=== PATIENT | male | born 1990 | race Caucasian/White ===

== ENCOUNTER 2016-03-26 08:36 | Emergency (ER) | payer SELFPAY ==
[2016-03-26 08:41] VITALS: BP 122/93; PULSE 75; RESP 20; TEMP 97.5
--- NOTE | 2016-03-26 08:59 | ED ---
Skin/Abscess/FB HPI - General Chief complaint: Skin/Abscess/Foreign Body Stated complaint: rash Time Seen by Provider: 03/26/16 08:49 Source: patient, RN notes reviewed Mode of arrival: ambulatory Limitations: no limitations - History of Present Illness Initial comments: 25 yo male presents to the ER with a chief complaint of rash. Patient states he has itchy rash the left side of his leg and back. Patient states that it's been itching for the past few days. Patient states it started out rather stoic removed. His chest CT will be. Patient states he just cannot help but it just so he was concerned. Patient states is no fever chills with this. Patient denies any itching in the web spaces. Patient states his son has a few bumps as well but the does not. Patient states that he was concerned due to the rash states that he should be evaluated. Patient denies any recent fever, chills , shortness of breath, chest pain, back pain, abdominal pain, nausea vomiting, numbness or tingling, dysuria or hematuria, constipation or diarrhea, headaches or visual changes, or any other current symptoms. - Related Data Previous Rx's Medication Instructions Recorded Famotidine [Pepcid] 20 mg PO DAILY #10 tablet 11/20/15 Ondansetron HCl [Zofran] 4 mg PO Q6HR PRN #10 tab 11/20/15 Hydrocortisone Cream 1 applic TOPICAL BID #1 tube 03/26/16 [Hydrocortisone 1% Cream] diphenhydrAMINE [Benadryl] 50 mg PO HS PRN #5 capsule 03/26/16 Allergies Allergy/AdvReac Type Severity Reaction Status Date / Time No Known Allergies Allergy Verified 03/26/16 08:40 Review of Systems ROS Statement: Those systems with pertinent positive or pertinent negative responses have been documented in the HPI. ROS Other: All systems not noted in ROS Statement are negative. Past Medical History Past Medical History: No Reported History History of Any Multi-Drug Resistant Organisms: None Reported Past Surgical History: No Surgical Hx Reported Past Psychological History: No Psychological Hx Reported Smoking Status: Current every day smoker Past Alcohol Use History: Daily Past Drug Use History: Marijuana General Exam Limitations: no limitations General appearance: alert, in no apparent distress Respiratory exam: Present: normal lung sounds bilaterally. Absent: respiratory distress, wheezes, rales, rhonchi, stridor Cardiovascular Exam: Present: regular rate, normal rhythm, normal heart sounds. Absent: systolic murmur, diastolic murmur, rubs, gallop, clicks Back exam: Present: normal inspection Neurological exam: Present: alert, oriented X3, CN II-XII intact. Absent: motor sensory deficit Psychiatric exam: Present: normal affect, normal mood Skin exam: Present: warm, dry, intact, rash (Papular left leg into back area) Course Vital Signs 03/26/16 08:39 Temperature 97.5 F L Pulse Rate 75 Respiratory 20 Rate Blood Pressure 122/93 O2 Sat by Pulse 98 Oximetry Medical Decision Making - Medical Decision Making 25-year-old male presents with a pruritic type rash. This time we discussed that most likely bug bites or flea bites. We discussed was started on Benadryl for anti-itch as well as a hydrocortisone cream to place on the area. We discussed follow-up with what to watch for. The patient stated that he understood all questions have been answered. They will be discharged home. Disposition Clinical Impression: Pruritic rash Disposition: HOME SELF-CARE Condition: Stable Instructions: Acute Rash (ED) Additional Instructions: Please use medication as discussed. Please follow up with family doctor if symptoms have not improved over the next two days. Please return to the emergency room if your symptoms increase or worsen or for any other concerns. Prescriptions: Hydrocortisone Cream [Hydrocortisone 1% Cream] 1 applic TOPICAL BID #1 tube diphenhydrAMINE [Benadryl] 50 mg PO HS PRN #5 capsule PRN Reason: Itching Referrals: None,Stated [Primary Care Provider] - 1-2 days Nida Cline MD [STAFF PHYSICIAN] - 1-2 days Time of Disposition: 08:59
== END 2016-03-26 09:09 | disposition home or self-care (01) ==
LOC: EC 08:36
DX: R21 Rash and other nonspecific skin eruption (principal); L29.9 Pruritus, unspecified; F17.200 Nicotine dependence, unspecified, uncomplicated
CPT/HCPCS: 99282

== ENCOUNTER 2016-08-02 10:05 | Emergency (ER) | payer OTHER ==
[2016-08-02] MEDS: DEXAMETHASONE SOD PHOSPHATE 10 MG/ML 1 ML VIAL IM STA (11:07)
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
[2016-08-02] MEDS: IBUPROFEN 600 MG TAB PO STA (11:08)
[2016-08-02] MEDS: ONDANSETRON ODT 4 MG TAB PO STA (11:08)
[2016-08-02 12:15] VITALS: BP 138/86; PULSE 62; RESP 16
[2016-08-02 12:22] VITALS: TEMP 97.6
== END 2016-08-02 12:22 | disposition home or self-care (01) ==
LOC: EC 10:05
DX: J02.9 Acute pharyngitis, unspecified (principal); K92.0 Hematemesis; F17.200 Nicotine dependence, unspecified, uncomplicated
CPT/HCPCS: 87081; 87430; 99284; 96372; J1100

== ENCOUNTER 2016-08-04 08:48 | Emergency (ER) | payer OTHER ==
[2016-08-04 08:52] VITALS: TEMP 98.1
[2016-08-04] MEDS ORDERED: ONDANSETRON 4 MG/2 ML VIAL IVP STA ×2 (09:08→09:55)
[2016-08-04] MEDS ORDERED: PANTOPRAZOLE 40 MG/10 ML VIAL IVP STA (09:08)
[2016-08-04] MEDS ORDERED: SODIUM CHLORIDE 0.9% 1,000 ML IV STA (09:08)
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
[2016-08-04 09:28] LABS: Basophils # (A) 0.1 k/uL (0-0.2); Basophils % (A) 0 %; CH 31.2; CHCM 33.6; Eosinophils % (A) 0 %; HCT 46.7 % (39.0-53.0); HDW 2.38; HGB 15.6 gm/dL (13.0-17.5); Luc # (Auto) 0.43; Luc % (Auto) 3; Lymphocytes # (A) 1.8 k/uL (1.0-4.8); Lymphocytes % (A) 12 %; MCH 31.1 pg (25.0-35.0); MCHC 33.3 g/dL (31.0-37.0); MCV 93.3 fL (80.0-100.0); Mean Platelet Volume 9.1; Monocytes # (A) 1.3 k/uL (0-1.0); Monocytes % (A) 8 %; Neutrophils # (A) 11.4 k/uL (1.3-7.7); Neutrophils % (A) 76 %; RBC 5.01 m/uL (4.30-5.90); RDW 14.1 % (11.5-15.5)
[2016-08-04 09:29] LABS: Appearance,Urine Clear (Clear); Bilirubin,Urine Negative (Negative); Glucose,Urine (UA) Negative (Negative); Ketones,Urine Negative (Negative); Leukocyte Esterase,Urine Negative (Negative); Nitrite,Urine Negative (Negative); PH, Urine 6.5 (5.0-8.0); Protein,Urine Trace (Negative); Specific Gravity,Urine 1.024 (1.001-1.035); UA Billing (MACRO vs. MICRO) CHEM; Urobilinogen,Urine <2.0 mg/dL (<2.0)
[2016-08-04 09:37] LABS: Glucose 101 mg/dL (74-99)
[2016-08-04 09:38] LABS: ALT 55 U/L (21-72); AST 31 U/L (17-59); Alkaline Phosphatase 109 U/L (38-126); Amylase 62 U/L (30-110); Anion Gap 11 mmol/L; Blood Urea Nitrogen 17 mg/dL (9-20); Calcium 9.8 mg/dL (8.4-10.2); Carbon Dioxide 23 mmol/L (22-30); Chloride 108 mmol/L (98-107); Non-African American GFR(MDRD) 58 (>60 ml/min/1.73 sqM); Potassium 4.2 mmol/L (3.5-5.1); Sodium 142 mmol/L (137-145); Total Bilirubin 0.7 mg/dL (0.2-1.3); Total Protein 7.9 g/dL (6.3-8.2)
--- NOTE | 2016-08-04 09:39 | XR ---
EXAMINATION TYPE: XR KUB DATE OF EXAM: 08/04/2016 COMPARISON: NONE HISTORY: Generalized abdominal pain and nausea TECHNIQUE: One view abdominal series FINDINGS: The osseous structures are intact. The bowel gas pattern is nonspecific. Lung bases are clear. Calc ification left pelvis likely vascular. IMPRESSION: 1. Nonspecific abdomen.
--- NOTE | 2016-08-04 09:39 | XR ---
EXAMINATION TYPE: XR chest 2V DATE OF EXAM: 08/04/2016 COMPARISON: 09/27/2015 TECHNIQUE: PA and lateral views submitted. HISTORY: Hematemesis FINDINGS: The lungs are clear and there is no pneumothorax, pleural effusion, or focal pneumonia. Biapical pl eural thickening. Heart size stable. IMPRESSION: 1. No acute process.
[2016-08-04] MEDS ORDERED: RX INFO: IV CONTRAST WAS GIVEN 1 EACH MISC MISCELLANE PRN (10:13)
[2016-08-04] MEDS ORDERED: HYDROmorphone 1 MG/ML 1 ML SYRINGE IVP STA (10:13)
[2016-08-04 10:18] VITALS: RESP 16
--- NOTE | 2016-08-04 11:03 | CT ---
EXAM: CT Abdomen and Pelvis With Intravenous Contrast CLINICAL HISTORY: 25-year-old male with midabdominal pain and nausea. TECHNIQUE: Axial computed tomography images of the abdomen and pelvis with intravenous contrast. Coronal and sagittal reformatted images were created and reviewed. CTDI is 29.8 mGy and DLP is 1385.8 mGy-cm. This CT exam was performed using one or more of the following dose reduction techniques: automated exposure control, adjustment of the mA and/or kV according to patient size, and/or use of iterative reconstruction technique. COMPARISON: None. FINDINGS: Lower thorax: Unremarkable. ABDOMEN: Liver: Unremarkable. Gallbladder and bile ducts: Unremarkable. Pancreas: Unremarkable. Spleen: Unremarkable. Adrenals: Unremarkable. Kidneys and ureters: 5 x 4 x 3 mm right distal ureteral stone, approximately 4 cm proximal to the UVJ, with resulting mild right hydroureteronephrosis, delayed nephrogram and pyelogram, and mild perinephric/periureteral fat stranding. Stomach and bowel: Unremarkable. No evidence of mechanical obstruction or obvious acute inflammation. Appendix: Unremarkable. PELVIS: Bladder: Unremarkable. Reproductive: Unremarkable. ABDOMEN and PELVIS: Intraperitoneal space: No ascites or pneumoperitoneum. Bones/joints: No acute abnormality. Soft tissues: Tiny fat-containing umbilical hernia. Vasculature: Unremarkable. Lymph nodes: No pathologically enlarged lymph nodes. IMPRESSION: 5 x 4 x 3 mm right distal ureteral stone, approximately 4 cm proximal to the UVJ, with resulting mild right hydroureteronephrosis, delayed nephrogram and pyelogram, and mild perinephric/periureteral fat stranding.
[2016-08-04 11:55] VITALS: BP 130/87; PULSE 62
[2016-08-04] MEDS ORDERED: KETOROLAC 30 MG/ML 1 ML VIAL IVP SCH (12:00)
== END 2016-08-04 11:55 | disposition home or self-care (01) ==
LOC: EC 08:48
DX: N13.2 Hydronephrosis with renal and ureteral calculous obstruction (principal); R11.2 Nausea with vomiting, unspecified; J02.9 Acute pharyngitis, unspecified; F17.200 Nicotine dependence, unspecified, uncomplicated
CPT/HCPCS: 36415; 80053; 82150; 83690; 85025; 81003; 71020; 74000; 74177; 99284; 96374; 96375 ×3; 96376; 96361; J2405; J1885; J1170; Q9967; C9113

== ENCOUNTER 2016-08-13 10:30 | Emergency (ER) | payer OTHER ==
[2016-08-13] MEDS ORDERED: KETOROLAC 30 MG/ML 1 ML VIAL IVP STA (10:57)
[2016-08-13] MEDS ORDERED: SODIUM CHLORIDE 0.9% 1,000 ML IV ONE (10:57)
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
[2016-08-13 12:02] LABS: Basophils # (A) 0.1 k/uL (0-0.2); Basophils % (A) 1 %; CH 31.2; CHCM 33.4; Eosinophils # (A) 0.2 k/uL (0-0.7); Eosinophils % (A) 2 %; HCT 46.3 % (39.0-53.0); HDW 2.36; HGB 15.4 gm/dL (13.0-17.5); Luc # (Auto) 0.21; Luc % (Auto) 3; Lymphocytes # (A) 1.8 k/uL (1.0-4.8); Lymphocytes % (A) 25 %; MCH 31.3 pg (25.0-35.0); MCHC 33.3 g/dL (31.0-37.0); Mean Platelet Volume 8.7; Monocytes # (A) 0.5 k/uL (0-1.0); Monocytes % (A) 7 %; Neutrophils # (A) 4.5 k/uL (1.3-7.7); Neutrophils % (A) 62 %; RBC 4.92 m/uL (4.30-5.90); RDW 13.8 % (11.5-15.5); WBC 7.3 k/uL (3.8-10.6); WBC (Perox) 6.92
[2016-08-13 12:05] LABS: ALT 54 U/L (21-72); AST 33 U/L (17-59); Alkaline Phosphatase 120 U/L (38-126); Amylase 41 U/L (30-110); Anion Gap 10 mmol/L; Blood Urea Nitrogen 14 mg/dL (9-20); Carbon Dioxide 26 mmol/L (22-30); Chloride 107 mmol/L (98-107); Glucose 85 mg/dL (74-99); Non-African American GFR(MDRD) >60 (>60 ml/min/1.73 sqM); Potassium 4.2 mmol/L (3.5-5.1); Sodium 143 mmol/L (137-145); Total Bilirubin 0.6 mg/dL (0.2-1.3); Total Protein 7.2 g/dL (6.3-8.2)
--- NOTE | 2016-08-13 12:27 | XR ---
EXAMINATION TYPE: XR KUB DATE OF EXAM: 08/13/2016 CLINICAL DATA: 25-year-old male with right lower quadrant pain, PHH COMPARISON: 08/04/2016 FINDINGS: Lung bases are clear. No evidence for free intraperitoneal air. Minimal scattered colonic gas is present. No dilated small bowel loops or air-fluid level seen. No suspicious calcifications identified. IMPRESSION: No evidence of bowel obstruction or free intraperitoneal air.
[2016-08-13 13:03] LABS: Appearance,Urine Clear (Clear); Bilirubin,Urine Negative (Negative); Glucose,Urine (UA) Negative (Negative); Ketones,Urine Negative (Negative); Leukocyte Esterase,Urine Negative (Negative); Nitrite,Urine Negative (Negative); PH, Urine 5.5 (5.0-8.0); Protein,Urine Negative (Negative); Specific Gravity,Urine 1.007 (1.001-1.035); UA Billing (MACRO vs. MICRO) CHEM; Urobilinogen,Urine <2.0 mg/dL (<2.0)
[2016-08-13 13:36] VITALS: BP 129/59; PULSE 64; RESP 18; TEMP 97.5
== END 2016-08-13 13:35 | disposition home or self-care (01) ==
LOC: EC 10:30
DX: R10.9 Unspecified abdominal pain (principal); R11.0 Nausea; F17.200 Nicotine dependence, unspecified, uncomplicated
CPT/HCPCS: 99284; 96374; 36415; 80053; 82150; 83690; 85025; 81003; 74000; J1885

== ENCOUNTER 2016-08-20 16:23 | Emergency (ER) | payer OTHER ==
[2016-08-20] MEDS ORDERED: SODIUM CHLORIDE 0.9% 1,000 ML IV ONE (16:50)
[2016-08-20] MEDS ORDERED: MORPHINE SULFATE 4 MG/ML SYRINGE IVP STA (16:50)
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
[2016-08-20 17:08] LABS: Basophils % (A) 1 %; CH 30.4; CHCM 33.5; Eosinophils # (A) 0.1 k/uL (0-0.7); Eosinophils % (A) 2 %; HCT 43.3 % (39.0-53.0); HDW 2.41; Luc # (Auto) 0.18; Luc % (Auto) 3; Lymphocytes # (A) 1.4 k/uL (1.0-4.8); Lymphocytes % (A) 22 %; MCH 31.6 pg (25.0-35.0); MCHC 34.6 g/dL (31.0-37.0); MCV 91.3 fL (80.0-100.0); Mean Platelet Volume 8.5; Monocytes # (A) 0.4 k/uL (0-1.0); Monocytes % (A) 6 %; Neutrophils # (A) 4.5 k/uL (1.3-7.7); Neutrophils % (A) 67 %; RBC 4.75 m/uL (4.30-5.90); RDW 13.5 % (11.5-15.5); WBC 6.7 k/uL (3.8-10.6); WBC (Perox) 6.97
[2016-08-20 17:16] LABS: Carbon Dioxide 24 mmol/L (22-30); Chloride 107 mmol/L (98-107); Glucose 88 mg/dL (74-99); Potassium 4.3 mmol/L (3.5-5.1); Sodium 142 mmol/L (137-145)
[2016-08-20 17:17] LABS: ALT 48 U/L (21-72); AST 35 U/L (17-59); Alkaline Phosphatase 109 U/L (38-126); Anion Gap 11 mmol/L; Blood Urea Nitrogen 14 mg/dL (9-20); Calcium 9.8 mg/dL (8.4-10.2); Non-African American GFR(MDRD) >60 (>60 ml/min/1.73 sqM); Total Bilirubin 0.8 mg/dL (0.2-1.3); Total Protein 7.6 g/dL (6.3-8.2)
--- NOTE | 2016-08-20 17:34 | CT ---
EXAMINATION TYPE: CT abdomen pelvis wo con DATE OF EXAM: 08/20/2016 COMPARISON: NONE HISTORY: Right side abdominal pain. CT DLP: 912.1 mGycm Automated exposure control for dose reduction was used. TECHNIQUE: Helical acquisition of images was performed from the lung bases through the pelvis. FINDINGS: Lung bases are clear. There is no pleural effusion. Liver spleen pancreas gallbladder appear normal. Bile ducts are not dilated. There is no adrenal mass. Kidneys have normal size and contour. There is mild right-sided hydronephrosis and hydroureter. There is a 5 mm calculus at the right ureterovesical junction. Appendix appears normal. I see no intestinal wall thickening. There are no dilated loops. There is no ascites. There is no retroperitoneal adenopathy. Bladder distends smoothly. There is no p elvic mass. Bony structures are intact. IMPRESSION: THERE IS A CALCULUS OBSTRUCTING THE RIGHT UPPER COLLECTING SYSTEM AT THE RIGHT URETERAL VESICLE JUNCT ION.
[2016-08-20 17:45] LABS: Amorphous Sediment,Urine Rare /hpf; Appearance,Urine Cloudy (Clear); Bacteria,Urine Moderate /hpf; Bilirubin,Urine Negative (Negative); Glucose,Urine (UA) Negative (Negative); Ketones,Urine Negative (Negative); Leukocyte Esterase,Urine Negative (Negative); Nitrite,Urine Negative (Negative); PH, Urine 7.5 (5.0-8.0); Particle Count 26401; Protein,Urine Negative (Negative); Specific Gravity,Urine 1.011 (1.001-1.035); UA Billing (MACRO vs. MICRO) MICRO; Urobilinogen,Urine <2.0 mg/dL (<2.0); WBC,Urine 2 /hpf (0-5)
[2016-08-20] MEDS ORDERED: KETOROLAC 30 MG/ML 1 ML VIAL IVP STA (17:57)
[2016-08-20] MEDS ORDERED: HYDROmorphone 1 MG/ML 1 ML SYRINGE IVP STA (17:57)
[2016-08-20 18:35] VITALS: BP 134/70; PULSE 69; RESP 18; TEMP 97.6
== END 2016-08-20 18:34 | disposition home or self-care (01) ==
LOC: EC 16:23
DX: N20.1 Calculus of ureter (principal); R11.0 Nausea; F17.200 Nicotine dependence, unspecified, uncomplicated
CPT/HCPCS: 36415; 80053; 83690; 85025; 81001; 74176; 99284; 96374; 96375 ×2; 96361; J2270; J1885; J1170

== ENCOUNTER 2016-09-28 08:28 | Emergency (ER) | payer OTHER ==
[2016-09-28 08:37] VITALS: RESP 18
[2016-09-28] MEDS ORDERED: SODIUM CHLORIDE 0.9% 1,000 ML IV STA (08:43)
[2016-09-28] MEDS ORDERED: diphenhydrAMINE 50 MG/ML 1 ML VIAL IVP STA (08:43)
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
[2016-09-28 09:20] LABS: Basophils # (A) 0.1 k/uL (0-0.2); Basophils % (A) 1 %; CH 31.6; CHCM 33.7; Eosinophils # (A) 0.2 k/uL (0-0.7); Eosinophils % (A) 3 %; HDW 2.36; HGB 14.9 gm/dL (13.0-17.5); Luc # (Auto) 0.22; Luc % (Auto) 4; Lymphocytes # (A) 1.7 k/uL (1.0-4.8); Lymphocytes % (A) 28 %; MCH 30.6 pg (25.0-35.0); MCHC 32.4 g/dL (31.0-37.0); MCV 94.5 fL (80.0-100.0); Mean Platelet Volume 8.8; Monocytes # (A) 0.6 k/uL (0-1.0); Monocytes % (A) 9 %; Neutrophils # (A) 3.6 k/uL (1.3-7.7); Neutrophils % (A) 57 %; RBC 4.87 m/uL (4.30-5.90); RDW 14.7 % (11.5-15.5); WBC 6.3 k/uL (3.8-10.6); WBC (Perox) 5.94
[2016-09-28 09:25] LABS: Appearance,Urine Clear (Clear); Bilirubin,Urine Negative (Negative); Calcium Oxalate Crystals,Urine Rare /hpf; Glucose,Urine (UA) Negative (Negative); Ketones,Urine Negative (Negative); Leukocyte Esterase,Urine Trace (Negative); Mucus,Urine Few /hpf; Nitrite,Urine Negative (Negative); PH, Urine 5.5 (5.0-8.0); Particle Count 4950; Protein,Urine Trace (Negative); RBC,Urine 1 /hpf (0-5); Specific Gravity,Urine 1.025 (1.001-1.035); UA Billing (MACRO vs. MICRO) MICRO; Urobilinogen,Urine <2.0 mg/dL (<2.0); WBC,Urine 3 /hpf (0-5)
[2016-09-28 09:31] LABS: ALT 87 U/L (21-72); AST 67 U/L (17-59); Alkaline Phosphatase 113 U/L (38-126); Amylase 57 U/L (30-110); Anion Gap 9 mmol/L; Blood Urea Nitrogen 15 mg/dL (9-20); Calcium 10.1 mg/dL (8.4-10.2); Carbon Dioxide 24 mmol/L (22-30); Chloride 108 mmol/L (98-107); Glucose 86 mg/dL (74-99); Non-African American GFR(MDRD) >60 (>60 ml/min/1.73 sqM); Potassium 4.5 mmol/L (3.5-5.1); Sodium 141 mmol/L (137-145); Total Bilirubin 0.5 mg/dL (0.2-1.3); Total Protein 7.8 g/dL (6.3-8.2)
--- NOTE | 2016-09-28 09:33 | XR ---
EXAMINATION TYPE: XR KUB DATE OF EXAM: 09/28/2016 CLINICAL DATA: 26-year-old male with abdominal pain, PHH COMPARISON: 08/13/2016 FINDINGS: Lung bases are clear. No evidence for free intraperitoneal air. No dilated small bowel or air-fluid levels. Scattered mild stool is present. No suspicious calcifications identified radiographically. IMPRESSION: No evidence of bowel obstruction or free intraperitoneal air.
[2016-09-28] MEDS ORDERED: KETOROLAC 30 MG/ML 1 ML VIAL IVP STA (10:27)
[2016-09-28 10:36] VITALS: BP 109/62; PULSE 78; TEMP 97.8
== END 2016-09-28 10:35 | disposition home or self-care (01) ==
LOC: EC 08:28
DX: N20.0 Calculus of kidney (principal); F17.200 Nicotine dependence, unspecified, uncomplicated
CPT/HCPCS: 36415; 80053; 82150; 83690; 85025; 81001; 87086; 74000; 99284; 96374; 96375; 96361; J1200; J1885

== ENCOUNTER 2017-07-24 13:02 | Emergency (ER) | payer OTHER ==
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
[2017-07-24 14:20] LABS: Basophils % (A) 1 %; Eosinophils # (A) 0.2 k/uL (0-0.7); Eosinophils % (A) 2 %; HGB 15.2 gm/dL (13.0-17.5); Lymphocytes # (A) 2.3 k/uL (1.0-4.8); Lymphocytes % (A) 30 %; MCH 29.3 pg (25.0-35.0); MCV 88.8 fL (80.0-100.0); Mean Platelet Volume 8.9; Monocytes # (A) 0.6 k/uL (0-1.0); Monocytes % (A) 8 %; Neutrophils # (A) 4.4 k/uL (1.3-7.7); Neutrophils % (A) 58 %; Platelet Count 369 k/uL (150-450); RBC 5.18 m/uL (4.30-5.90); RDW 14.4 % (11.5-15.5); WBC 7.7 k/uL (3.8-10.6)
--- NOTE | 2017-07-24 14:20 | XR ---
EXAMINATION TYPE: XR chest 2V DATE OF EXAM: 07/24/2017 COMPARISON: 08/04/2016 HISTORY: Tachycardia and shortness of breath TECHNIQUE: Frontal and lateral views of the chest are obtained. FINDINGS: There is no focal air space opacity, pleural effusion, or pneumothorax seen. The cardiac silhouette size is mildly enlarged and stable from the prior. The osseous structures are intact. IMPRESSION: No acute cardiopulmonary process.
[2017-07-24 14:28] LABS: ALT 65 U/L (21-72); AST 46 U/L (17-59); Albumin 4.3 g/dL (3.5-5.0); Alkaline Phosphatase 114 U/L (38-126); Anion Gap 12 mmol/L; Blood Urea Nitrogen 10 mg/dL (9-20); Calcium 9.8 mg/dL (8.4-10.2); Carbon Dioxide 26 mmol/L (22-30); Chloride 104 mmol/L (98-107); Glucose 87 mg/dL (74-99); Magnesium 1.8 mg/dL (1.6-2.3); Potassium 4.5 mmol/L (3.5-5.1); Sodium 142 mmol/L (137-145); Total Bilirubin 0.3 mg/dL (0.2-1.3); Total Protein 7.3 g/dL (6.3-8.2)
[2017-07-24 14:30] LABS: INR 1.1 (<1.2); Partial Thromboplastin Time 23.1 sec (22.0-30.0); Prothrombin Time 10.6 sec (9.0-12.0)
[2017-07-24 14:43] LABS: T4, Free (Free Thyroxine) 0.97 ng/dL (0.78-2.19)
[2017-07-24 14:44] LABS: Creatine Kinase 193 U/L (55-170)
[2017-07-24 14:56] LABS: Creatine Kinase MB 1.2 ng/mL (0.0-2.4); Troponin I <0.012 ng/mL (0.000-0.034)
[2017-07-24 16:00] LABS: Amphetamine Screen,Urine Not Detected (NotDetected); Barbiturate Screen,Urine Not Detected (NotDetected); Benzodiazepines Screen,Urine Not Detected (NotDetected); Cocaine Screen,Urine Not Detected (NotDetected); Methadone Screen, Urine Not Detected (NotDetected); Opiate Screen,Urine Not Detected (NotDetected); Oxycodone Screen, Urine Not Detected (NotDetected); Phencyclidine Screen,Urine Not Detected (NotDetected); Tricyclic Antidepressant,Urine Not Detected (NotDetected); Urn Cannabinoid Scrn Not Detected (NotDetected)
[2017-07-24 16:28] VITALS: BP 134/62; PULSE 68; RESP 16; TEMP 98.2
== END 2017-07-24 16:27 | disposition home or self-care (01) ==
LOC: EC 13:02
DX: R00.2 Palpitations (principal); R00.0 Tachycardia, unspecified; F17.200 Nicotine dependence, unspecified, uncomplicated
CPT/HCPCS: 36415; 71046; 80053; 80306; 82550; 82553; 83735; 84439; 84443; 84484; 85025; 85610; 85730; 93005; 99285

== ENCOUNTER 2017-09-14 15:51 | Emergency (ER) | payer OTHER ==
[2017-09-14 15:58] VITALS: BP 154/82; PULSE 74; RESP 20; TEMP 97.7
[2017-09-14] MEDS ORDERED: DEXAMETHASONE 4 MG TAB PO STA (17:03)
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
== END 2017-09-14 17:15 | disposition home or self-care (01) ==
LOC: EC 15:51
DX: J02.9 Acute pharyngitis, unspecified (principal); F17.200 Nicotine dependence, unspecified, uncomplicated
CPT/HCPCS: 99282; J8540

== ENCOUNTER 2018-05-15 19:25 | Emergency (ER) | payer OTHER ==
[2018-05-15 19:35] VITALS: RESP 18
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
[2018-05-15 20:26] LABS: Basophils % (A) 0 %; Eosinophils # (A) 0.1 k/uL (0-0.7); Eosinophils % (A) 2 %; HCT 46.4 % (39.0-53.0); Lymphocytes % (A) 24 %; MCH 28.5 pg (25.0-35.0); MCHC 32.2 g/dL (31.0-37.0); MCV 88.5 fL (80.0-100.0); Mean Platelet Volume 8.6; Monocytes # (A) 0.7 k/uL (0-1.0); Monocytes % (A) 8 %; Neutrophils # (A) 5.3 k/uL (1.3-7.7); Neutrophils % (A) 63 %; Platelet Count 397 k/uL (150-450); RBC 5.25 m/uL (4.30-5.90); RDW 14.1 % (11.5-15.5); WBC 8.5 k/uL (3.8-10.6)
[2018-05-15 20:30] LABS: ALT 48 U/L (21-72); AST 37 U/L (17-59); Albumin 4.1 g/dL (3.5-5.0); Alkaline Phosphatase 104 U/L (38-126); Anion Gap 6 mmol/L; Blood Urea Nitrogen 15 mg/dL (9-20); Calcium 9.7 mg/dL (8.4-10.2); Carbon Dioxide 24 mmol/L (22-30); Chloride 108 mmol/L (98-107); Glucose 81 mg/dL (74-99); Potassium 4.7 mmol/L (3.5-5.1); Sodium 138 mmol/L (137-145); Total Bilirubin 0.3 mg/dL (0.2-1.3); Total Protein 7.2 g/dL (6.3-8.2)
--- NOTE | 2018-05-15 20:49 | XR ---
EXAMINATION TYPE: XR chest 2V DATE OF EXAM: 05/15/2018 COMPARISON: 07/24/2017 HISTORY: Dizziness TECHNIQUE: Frontal and lateral views of the chest are obtained. FINDINGS: Heart and mediastinum are normal. Lungs are clear. Costophrenic angles are clear. Bony tho rax is intact. There are chest leads. IMPRESSION: No active cardiopulmonary disease. No change.
[2018-05-15 22:17] VITALS: BP 130/80; PULSE 76; TEMP 98.1
== END 2018-05-15 22:16 | disposition home or self-care (01) ==
LOC: EC 19:25
DX: H81.10 Benign paroxysmal vertigo, unspecified ear (principal); R07.89 Other chest pain; F17.200 Nicotine dependence, unspecified, uncomplicated
CPT/HCPCS: 36415; 71046; 80053; 84484; 85025; 93005; 99284

== ENCOUNTER 2020-04-21 14:52 | Emergency (ER) | payer OTHER ==
[2020-04-21 15:02] VITALS: TEMP 97.9
[2020-04-21] MEDS ORDERED: ASPIRIN 81 MG PO STA (15:17)
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
[2020-04-21 15:41] LABS: Basophils # (A) 0.1 k/uL (0-0.2); Basophils % (A) 1 %; Eosinophils # (A) 0.3 k/uL (0-0.7); Eosinophils % (A) 3 %; HCT 46.4 % (39.0-53.0); HGB 15.4 gm/dL (13.0-17.5); Lymphocytes # (A) 2.3 k/uL (1.0-4.8); Lymphocytes % (A) 24 %; MCH 29.8 pg (25.0-35.0); MCHC 33.1 g/dL (31.0-37.0); MCV 89.9 fL (80.0-100.0); Mean Platelet Volume 9.8; Monocytes # (A) 0.7 k/uL (0-1.0); Monocytes % (A) 7 %; Neutrophils # (A) 6.1 k/uL (1.3-7.7); Neutrophils % (A) 64 %; Platelet Count 392 k/uL (150-450); RBC 5.16 m/uL (4.30-5.90); RDW 14.1 % (11.5-15.5); WBC 9.6 k/uL (3.8-10.6)
[2020-04-21 15:50] LABS: ALT 72 U/L (4-49); AST 43 U/L (17-59); African American GFR (CKD) >90 (>60 ml/min/1.73 sqM); Albumin 4.3 g/dL (3.5-5.0); Alkaline Phosphatase 99 U/L (38-126); Anion Gap 7 mmol/L; Blood Urea Nitrogen 15 mg/dL (9-20); Calcium 9.7 mg/dL (8.4-10.2); Carbon Dioxide 25 mmol/L (22-30); Chloride 106 mmol/L (98-107); Glucose 86 mg/dL (74-99); Magnesium 1.8 mg/dL (1.6-2.3); Non-African American GFR(CKD) >90 (>60 ml/min/1.73 sqM); Potassium 4.5 mmol/L (3.5-5.1); Sodium 138 mmol/L (137-145); Total Bilirubin 0.4 mg/dL (0.2-1.3); Total Protein 7.7 g/dL (6.3-8.2)
[2020-04-21 15:56] LABS: D-Dimer 0.23 mg/L FEU (<0.60); Partial Thromboplastin Time 24.5 sec (22.0-30.0); Prothrombin Time 10.7 sec (9.0-12.0)
--- NOTE | 2020-04-21 16:21 | XR ---
EXAMINATION TYPE: XR chest 2V DATE OF EXAM: 04/21/2020 COMPARISON: Chest x-ray 05/15/2018 HISTORY: Chest pain TECHNIQUE: Frontal and lateral views of the chest are obtained. FINDINGS: There is no focal air space opacity, pleural effusion, or pneumothorax seen. The cardiac silhouette size is within normal limits. There are overlying leads. The osseous structures are intac t. IMPRESSION: No acute cardiopulmonary process.
[2020-04-21 17:38] VITALS: BP 107/67; PULSE 55; RESP 18
== END 2020-04-21 18:54 | disposition home or self-care (01) ==
LOC: EC 14:52
DX: R07.89 Other chest pain (principal); F17.200 Nicotine dependence, unspecified, uncomplicated
CPT/HCPCS: 36415; 71046; 80053; 83735; 83880; 84484; 85025; 85379; 85610; 85730; 93005; 99285

== ENCOUNTER 2021-04-18 14:21 | Emergency (ER) | payer OTHER ==
[2021-04-18 14:50] VITALS: TEMP 98.1
[2021-04-18 17:07] LABS: Appearance,Urine Clear (Clear); Bilirubin,Urine Negative (Negative); Blood,Urine Negative (Negative); Color,Urine Yellow; Glucose,Urine (UA) Negative (Negative); Ketones,Urine Negative (Negative); Leukocyte Esterase,Urine Negative (Negative); Nitrite,Urine Negative (Negative); Protein,Urine Trace (Negative); Specific Gravity,Urine 1.026 (1.001-1.035); Urobilinogen,Urine <2.0 mg/dL (<2.0)
[2021-04-18 17:11] VITALS: BP 127/71; PULSE 77; RESP 20
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
--- NOTE | 2021-04-18 17:35 | CT ---
EXAMINATION TYPE: CT abdomen pelvis wo con DATE OF EXAM: 04/18/2021 COMPARISON: 08/20/2016 HISTORY: Left lower quadrant pain, history of stones CT DLP: 1477.9 mGycm Automated exposure control for dose reduction was used. Images obtained from the diaphragm to the floor of the pelvis with no contrast. The lung bases are clear. There is no pleural effusion. Heart size is normal. There is no pericardial effusion. Liver spleen and stomach pancreas gallbladder appear intact. Bile ducts are not dilated. There is no adrenal mass. Kidneys have normal size and contour. There is 2 mm calculus posterior left kidney. Ureters are not dilated. There is no hydronephrosis. There is no retroperitoneal adenopathy. Appendix is medial and appears normal. Bladder distends smoothly. There is no inguinal hernia. There is no free fluid in the pelvis. There is no mesenteric edema. There is no ascites or free air. There is no sign of a bowel obstructio n. The lumbar vertebrae have normal spacing and alignment. Posterior elements are intact. Bony pelvis is intact. The hip joints are intact. Sacroiliac joints are intact. IMPRESSION: Nonobstructing small left renal calculus. Normal appendix. No acute abnormality of the abdomen and pe lvis. Calculus appears new compared to old exam. I do not see a cause for left lower quadrant pain.
[2021-04-18] MEDS ORDERED: cefTRIAXone 1,000 MG VIAL (IM USE) IM STA (18:21)
[2021-04-18] MEDS ORDERED: AZITHROMYCIN 250 MG TAB PO ONE (18:24)
[2021-04-18] MEDS ORDERED: metroNIDAZOLE 500 MG TAB PO ONE (18:27)
== END 2021-04-18 18:55 | disposition home or self-care (01) ==
LOC: EC 14:21
DX: N34.2 Other urethritis (principal); F17.200 Nicotine dependence, unspecified, uncomplicated
CPT/HCPCS: 93005; 81003; 87491; 87591; 74176; 99285; 96372; J0696

== ENCOUNTER 2022-09-28 20:03 | Emergency (ER) | payer OTHER ==
[2022-09-28 20:08] VITALS: TEMP 98.7
[2022-09-28] MEDS ORDERED: MAG HYDROX/AL HYDROX/SIMETH 30 ML, HYOSCYAMINE ELIXIR 10 ML, LIDOCAINE 2% GLYDO JELLY 1... PO STA ×3 (20:57)
--- NOTE | 2022-09-28 21:47 | XR ---
EXAMINATION TYPE: XR chest 2V DATE OF EXAM: 09/28/2022 COMPARISON: 04/21/2020 HISTORY: 32 year-old male with pain TECHNIQUE: PA and lateral views FINDINGS: The cardiomediastinal silhouette, aorta, and pulmonary vasculature are within normal limits. Mild int erstitial prominence. No consolidation or pleural effusion. Some strandy atelectasis periphery of the left base. IMPRESSION: Some peribronchial cuffing could reflect bronchitis or asthma. No focal infiltrate seen.
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
[2022-09-28 22:43] VITALS: BP 103/64; PULSE 190; RESP 18
== END 2022-09-28 22:44 | disposition home or self-care (01) ==
LOC: EC 20:03
DX: R13.10 Dysphagia, unspecified (principal); F17.200 Nicotine dependence, unspecified, uncomplicated; F12.90 Cannabis use, unspecified, uncomplicated; Z88.8 Allergy status to other drugs, medicaments and biological substances
CPT/HCPCS: 71046; 99285

== ENCOUNTER 2023-01-17 08:26 | Emergency (ER) | payer OTHER ==
[2023-01-17] MEDS ORDERED: SODIUM CHLORIDE 0.9% 1,000 ML IV STA (08:41)
[2023-01-17] MEDS ORDERED: ONDANSETRON 4 MG/2 ML VIAL IVP STA (08:41)
[2023-01-17] MEDS ORDERED: HYDROmorphone 0.5 MG/0.5 ML SYRINGE IVP STA (08:41)
[2023-01-17 08:51] VITALS: TEMP 97.6
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
[2023-01-17 09:11] LABS: Basophils % (A) 0 %; Eosinophils # (A) 0.1 k/uL (0-0.7); Eosinophils % (A) 2 %; HCT 31.5 % (39.0-53.0); HGB 10.5 gm/dL (13.0-17.5); Lymphocytes # (A) 1.4 k/uL (1.0-4.8); Lymphocytes % (A) 18 %; MCH 31.4 pg (25.0-35.0); MCHC 33.4 g/dL (31.0-37.0); MCV 93.8 fL (80.0-100.0); Mean Platelet Volume 10.1; Monocytes # (A) 0.5 k/uL (0-1.0); Monocytes % (A) 6 %; Neutrophils # (A) 5.9 k/uL (1.3-7.7); Neutrophils % (A) 73 %; Platelet Count 248 k/uL (150-450); RBC 3.36 m/uL (4.30-5.90); RDW 13.9 % (11.5-15.5); WBC 8.1 k/uL (3.8-10.6)
[2023-01-17 09:33] LABS: ALT 44 U/L (4-49); AST 35 U/L (17-59); African American GFR (CKD) >90 (>60 ml/min/1.73 sqM); Albumin 4.2 g/dL (3.5-5.0); Alkaline Phosphatase 103 U/L (38-126); Anion Gap 11 mmol/L; Blood Urea Nitrogen 12 mg/dL (9-20); Calcium 9.5 mg/dL (8.4-10.2); Carbon Dioxide 23 mmol/L (22-30); Chloride 106 mmol/L (98-107); Glucose 100 mg/dL (74-99); Lipase 93 U/L (23-300); Non-African American GFR(CKD) >90 (>60 ml/min/1.73 sqM); Potassium 4.3 mmol/L (3.5-5.1); Sodium 140 mmol/L (137-145); Total Bilirubin 0.6 mg/dL (0.2-1.3); Total Protein 7.6 g/dL (6.3-8.2)
[2023-01-17] MEDS ORDERED: diphenhydrAMINE 50 MG/ML 1 ML VIAL IVP STA (09:47)
[2023-01-17 10:06] LABS: Amorphous Sediment,Urine Rare /hpf; Appearance,Urine Cloudy (Clear); Bilirubin,Urine Negative (Negative); Blood,Urine Large (Negative); Color,Urine Light Red; Glucose,Urine (UA) Negative (Negative); Ketones,Urine Negative (Negative); Leukocyte Esterase,Urine Trace (Negative); Mucus,Urine Many /hpf; Nitrite,Urine Negative (Negative); PH, Urine 5.5 (5.0-8.0); Protein,Urine Trace (Negative); RBC,Urine >182 /hpf (0-5); Specific Gravity,Urine 1.026 (1.001-1.035); Squamous Epithelial Cell,Urine 1 /hpf (0-4); Urobilinogen,Urine <2.0 mg/dL (<2.0); WBC,Urine 9 /hpf (0-5)
--- NOTE | 2023-01-17 10:26 | CT ---
EXAMINATION: CT ABDOMEN AND PELVIS WITH IV CONTRAST DATE OF EXAMINATION: 01/17/2023. COMPARISON: None available. INDICATION: Right lower quadrant pain. PROCEDURE: Axial CT of the abdomen and pelvis was performed with contrast and sagittal and coronal reformatted images were performed. CT dose lowering techniques were used, to include: automated expos ure control, adjustment for patient size, and/or use of iterative reconstruction. FINDINGS: LOWER CHEST : The visualized lung bases are clear. There are no pleural or pericardial effusions. ABDOMEN: Liver and Biliary system: Normal. Adrenal glands: Normal. Kidneys and ureters: 4 mm stone in the distal third of the right ureter without hydronephrosis. 5 mm nonobstructing stone in the interpolar region of the left kidney. The kidneys otherwise appear unrema rkable. Spleen: Normal. Pancreas: Normal. Gallbladder: Normal. Lymph nodes, Peritoneum and mesentery: There is no mesenteric or retroperitoneal lymphadenopathy. Gastrointestinal tract: There are no dilated loops of bowel or free intraperitoneal air. The appe ndix is normal. Aorta/IVC: No aortic aneurysm. IVC normal. Abdominal wall: Normal. PELVIS: Fluid: There is no free fluid in the pelvis. Lymph Nodes: There is no pelvic or inguinal lymphadenopathy.. Urinary bladder: Normal. BONES: There are no osseous destructive lesions.. ADDITIONAL SIGNIFICANT FINDINGS: None. IMPRESSION: 1. 4 mm stone in the distal right ureter without hydronephrosis. 2. Nonobstructing left renal stone. 3. No bowel obstruction or appendicitis.
[2023-01-17] MEDS ORDERED: ACET/COD 300 MG/30 MG STARTER PACK 6 TAB BTL PO STA (10:33)
[2023-01-17 11:09] VITALS: BP 140/60; PULSE 68; RESP 16
== END 2023-01-17 11:09 | disposition home or self-care (01) ==
LOC: EC 08:26
DX: N20.2 Calculus of kidney with calculus of ureter (principal); F12.90 Cannabis use, unspecified, uncomplicated; Z88.5 Allergy status to narcotic agent; Z88.8 Allergy status to other drugs, medicaments and biological substances; Z87.891 Personal history of nicotine dependence
CPT/HCPCS: 36415; 80053; 83605; 83690; 85025; 81001; 74177; 99284; 96374; 96375 ×2; 96361 ×2; J1200; J2405; J1170; Q9967

== ENCOUNTER 2023-04-25 08:41 | Emergency (ER) | payer OTHER ==
[2023-04-25 09:03] VITALS: TEMP 97.5
[2023-04-25] MEDS: SODIUM CHLORIDE 0.9% 1,000 ML IV STA (10:00)
[2023-04-25] MEDS: KETOROLAC 15 MG/ML 1 ML VIAL IVP STA (10:01)
--- NOTE | 2023-04-25 10:21 | CT ---
EXAMINATION: CT ABDOMEN AND PELVIS WITHOUT IV CONTRAST DATE OF EXAMINATION: 04/25/2023. COMPARISON: 01/17/2023.. INDICATION: Left lower quadrant pain. PROCEDURE: Axial CT of the abdomen and pelvis was performed with sagittal and coronal reformatted i mages without contrast enhancement. The exam is limited because some types of pathology may not be ad equately demonstrated due to lack of contrast enhancement. CT dose lowering techniques were used, to include: automated exposure control, adjustment for patient size, and/or use of iterative reconstruct ion. FINDINGS: LOWER CHEST : The visualized lung bases are clear. There are no pleural or pericardial effusions. ABDOMEN: Liver and Biliary system: Normal. Adrenal glands: Normal. Kidneys and ureters: There is a 2 mm nonobstructing stone in the lower pole of the right kidney. The re are no right-sided ureteral stones or hydronephrosis. There is a 5.6 mm stone in the left ureterop elvic junction without significant hydronephrosis at this time. There are no additional left-sided re nal stones or ureteral stones. Spleen: Normal. Pancreas: Normal. Gallbladder: Normal. Lymph nodes, Peritoneum and mesentery: There is an area of fat stranding within the right upper quad rant adjacent to the hepatic flexure measuring up to 2.3 cm in diameter. This is suspicious for epipl oic appendagitis. There are no changes of the bowel wall adjacent to this region. Gastrointestinal tract: There are no dilated loops of bowel or free intraperitoneal air. . The appe ndix is normal. Aorta/IVC: No aortic aneurysm.. IVC normal. Abdominal wall: Normal. PELVIS: Fluid: There is no free fluid in the pelvis. Lymph Nodes: There is no pelvic or inguinal lymphadenopathy.. Urinary bladder: Normal. BONES: There are no osseous destructive lesions.. ADDITIONAL SIGNIFICANT FINDINGS: None. IMPRESSION: 1. 5.6 mm stone in the left ureteropelvic junction without hydronephrosis seen at this time. 2. Area of fat stranding within the right upper quadrant adjacent to the hepatic flexure is suspiciou s for epiploic appendagitis. This was not seen on previous examinations.
[2023-04-25 10:36] LABS: Basophils % (A) 1 %; Eosinophils # (A) 0.3 k/uL (0-0.7); Eosinophils % (A) 5 %; HGB 15.5 gm/dL (13.0-17.5); Lymphocytes # (A) 1.6 k/uL (1.0-4.8); Lymphocytes % (A) 24 %; MCH 31.2 pg (25.0-35.0); MCHC 33.8 g/dL (31.0-37.0); MCV 92.3 fL (80.0-100.0); Mean Platelet Volume 10.5; Monocytes # (A) 0.5 k/uL (0-1.0); Monocytes % (A) 8 %; Neutrophils # (A) 4.1 k/uL (1.3-7.7); Neutrophils % (A) 61 %; Platelet Count 352 k/uL (150-450); RBC 4.98 m/uL (4.30-5.90); RDW 14.1 % (11.5-15.5); WBC 6.8 k/uL (3.8-10.6)
[2023-04-25 10:44] LABS: Appearance,Urine Clear (Clear); Bilirubin,Urine Negative (Negative); Blood,Urine Moderate (Negative); Color,Urine Light Red; Glucose,Urine (UA) Negative (Negative); Ketones,Urine Negative (Negative); Leukocyte Esterase,Urine Negative (Negative); Mucus,Urine Rare /hpf; Nitrite,Urine Negative (Negative); Protein,Urine Trace (Negative); RBC,Urine >182 /hpf (0-5); Squamous Epithelial Cell,Urine <1 /hpf (0-4); Urobilinogen,Urine <2.0 mg/dL (<2.0); WBC,Urine 2 /hpf (0-5)
[2023-04-25 10:56] LABS: ALT 91 U/L (4-49); AST 83 U/L (17-59); African American GFR (CKD) >90 (>60 ml/min/1.73 sqM); Albumin 4.2 g/dL (3.5-5.0); Alkaline Phosphatase 108 U/L (38-126); Anion Gap 8 mmol/L; Blood Urea Nitrogen 13 mg/dL (9-20); Calcium 9.2 mg/dL (8.4-10.2); Carbon Dioxide 21 mmol/L (22-30); Chloride 111 mmol/L (98-107); Glucose 93 mg/dL (74-99); Lipase 113 U/L (23-300); Non-African American GFR(CKD) >90 (>60 ml/min/1.73 sqM); Sodium 140 mmol/L (137-145); Total Bilirubin 0.8 mg/dL (0.2-1.3); Total Protein 7.8 g/dL (6.3-8.2)
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
[2023-04-25] MEDS: HYDROcodone/APAP 10-325MG 1 EACH TAB PO ONE (12:18)
[2023-04-25] MEDS: TAMSULOSIN 0.4 MG CAP.ER.24H PO STA (12:19)
[2023-04-25 12:52] VITALS: BP 129/92; PULSE 91; RESP 20
== END 2023-04-25 12:25 | disposition home or self-care (01) ==
LOC: EC 08:41
DX: R10.9 Unspecified abdominal pain (principal); N13.2 Hydronephrosis with renal and ureteral calculous obstruction; F17.200 Nicotine dependence, unspecified, uncomplicated; F12.90 Cannabis use, unspecified, uncomplicated; Z88.5 Allergy status to narcotic agent; Z88.8 Allergy status to other drugs, medicaments and biological substances
CPT/HCPCS: 36415; 80053; 83605; 83690; 85025; 81001; 74176; 99285; 96374; 96361; J1885

== ENCOUNTER 2023-05-27 18:32 | Emergency (ER) | payer OTHER ==
[2023-05-27 18:54] VITALS: TEMP 98.2
[2023-05-27] MEDS: SODIUM CHLORIDE 0.9% 1,000 ML IV STA (18:57)
[2023-05-27] MEDS: MORPHINE SULFATE 4 MG/ML SYRINGE IV STA (18:58)
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
[2023-05-27 19:09] LABS: Basophils # (A) 0.1 k/uL (0-0.2); Basophils % (A) 1 %; Eosinophils # (A) 0.5 k/uL (0-0.7); Eosinophils % (A) 5 %; HCT 45.1 % (39.0-53.0); HGB 14.4 gm/dL (13.0-17.5); Lymphocytes # (A) 1.8 k/uL (1.0-4.8); Lymphocytes % (A) 17 %; MCH 29.7 pg (25.0-35.0); Mean Platelet Volume 9.2; Monocytes # (A) 0.8 k/uL (0-1.0); Monocytes % (A) 7 %; Neutrophils # (A) 7.3 k/uL (1.3-7.7); Neutrophils % (A) 69 %; Platelet Count 346 k/uL (150-450); RBC 4.85 m/uL (4.30-5.90); RDW 13.7 % (11.5-15.5); WBC 10.6 k/uL (3.8-10.6)
[2023-05-27 19:22] LABS: ALT 76 U/L (4-49); AST 66 U/L (17-59); African American GFR (CKD) 80 (>60 ml/min/1.73 sqM); Albumin 3.8 g/dL (3.5-5.0); Alkaline Phosphatase 167 U/L (38-126); Anion Gap 7 mmol/L; Blood Urea Nitrogen 18 mg/dL (9-20); Calcium 9.3 mg/dL (8.4-10.2); Carbon Dioxide 22 mmol/L (22-30); Chloride 108 mmol/L (98-107); Glucose 113 mg/dL (74-99); Lipase 272 U/L (23-300); Non-African American GFR(CKD) 69 (>60 ml/min/1.73 sqM); Potassium 4.3 mmol/L (3.5-5.1); Sodium 137 mmol/L (137-145); Total Bilirubin 0.3 mg/dL (0.2-1.3); Total Protein 6.9 g/dL (6.3-8.2)
--- NOTE | 2023-05-27 19:38 | CT ---
EXAMINATION TYPE: CT abdomen pelvis w con DATE OF EXAM: 05/27/2023 COMPARISON: 01/17/2023 HISTORY: LLQ pain CT DLP: 2760.3 mGycm Automated exposure control for dose reduction was used. TECHNIQUE: Helical acquisition of images was performed from the lung bases through the pelvis. CONTRAST: Performed without Oral Contrast and with IV Contrast, patient injected with 100 ml mL of Isovue 300. FINDINGS: The lung bases are clear. The gallbladder is normal without distention, wall thickening, pericholecystic fluid or gallstones. T here is no biliary ductal dilatation. There is no focal mass or organomegaly involving the liver, pancreas, spleen or adrenal glands. There is mild to moderate left hydronephrosis and proximal left hydroureter secondary to a obstructin g 5 mm calculus in the mid left ureter. There are no right renal calculi. The caliber the abdominal aorta is normal is no retroperitoneal adenopathy or hemorrhage. The bowel loops are normal in caliber and there is no evidence of dilatation or obstruction. No infla mmatory changes are identified in the bowel wall or mesentery. There is no free intraperitoneal air or fluid. No pelvic mass, free fluid, abscess or adenopathy. The osseous structures and soft tissues are intact. IMPRESSION: Mild to moderate left hydronephrosis and left hydroureter secondary to a 5 mm obstructing mid left ur eteral calculus. No other significant abnormality seen.
[2023-05-27 20:06] VITALS: RESP 19
[2023-05-27 20:06] LABS: Appearance,Urine Clear (Clear); Bilirubin,Urine Negative (Negative); Blood,Urine Small (Negative); Color,Urine Colorless; Glucose,Urine (UA) Negative (Negative); Ketones,Urine Negative (Negative); Leukocyte Esterase,Urine Negative (Negative); Mucus,Urine Rare /hpf; Nitrite,Urine Negative (Negative); Protein,Urine Negative (Negative); RBC,Urine 26 /hpf (0-5); Specific Gravity,Urine 1.023 (1.001-1.035); Urobilinogen,Urine <2.0 mg/dL (<2.0); WBC,Urine 3 /hpf (0-5)
[2023-05-27] MEDS: PANTOPRAZOLE 40 MG/10 ML VIAL IVP STA (20:15)
[2023-05-27] MEDS: KETOROLAC 15 MG/ML 1 ML VIAL IVP STA (20:19)
[2023-05-27] MEDS: ONDANSETRON 4 MG ODT STARTER PACK 2 TAB BTL PO STA (21:00)
[2023-05-27] MEDS: ACET/COD 300 MG/30 MG STARTER PACK 6 TAB BTL PO STA (21:00)
[2023-05-27 21:21] VITALS: BP 160/97; PULSE 95
== END 2023-05-27 21:09 | disposition home or self-care (01) ==
LOC: EC 18:32
DX: N13.2 Hydronephrosis with renal and ureteral calculous obstruction (principal); F17.200 Nicotine dependence, unspecified, uncomplicated; Z88.5 Allergy status to narcotic agent; Z91.09 Other allergy status, other than to drugs and biological substances
CPT/HCPCS: 36415; 80053; 83690; 85025; 81001; 74177; 99284; 96374; 96375 ×2; 96361; J2270; J1885; S0119; C9113; Q9967

== ENCOUNTER 2023-06-11 08:07 | Emergency (ER) | payer OTHER ==
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
[2023-06-11] MEDS: KETOROLAC 15 MG/ML 1 ML VIAL IM STA (08:39)
[2023-06-11 09:13] LABS: ALT 69 U/L (4-49); AST 72 U/L (17-59); African American GFR (CKD) >90 (>60 ml/min/1.73 sqM); Albumin 4.2 g/dL (3.5-5.0); Alkaline Phosphatase 141 U/L (38-126); Amylase 59 U/L (30-110); Anion Gap 6 mmol/L; Blood Urea Nitrogen 19 mg/dL (9-20); Calcium 9.5 mg/dL (8.4-10.2); Carbon Dioxide 24 mmol/L (22-30); Chloride 109 mmol/L (98-107); Glucose 106 mg/dL (74-99); Lipase 104 U/L (23-300); Non-African American GFR(CKD) >90 (>60 ml/min/1.73 sqM); Potassium 4.4 mmol/L (3.5-5.1); Sodium 139 mmol/L (137-145); Total Bilirubin 0.7 mg/dL (0.2-1.3); Total Protein 7.7 g/dL (6.3-8.2)
--- NOTE | 2023-06-11 09:41 | CT ---
EXAMINATION TYPE: CT abdomen pelvis wo con DATE OF EXAM: 06/11/2023 COMPARISON: 05/27/2023 HISTORY: Rt flank pain, history of renal stones CT DLP: 1998 mGycm Examination of the solid and hollow viscera is limited given the lack of contrast. FINDINGS: LUNG BASES: No evidence for nodule. No evidence for infiltrate. LIVER/GB: The gallbladder is unremarkable. No space-occupying hepatic lesion. PANCREAS: No pancreatic mass identified. No inflammatory process seen. SPLEEN: No evidence for splenomegaly. No intrasplenic lesions seen. ADRENALS: No adrenal nodules identified. No evidence for thickening. KIDNEYS: No evidence for renal mass. Within the mid left ureter (axial image 101 and coronal image 63 ) there is a 5.8 mm in length by 3 mm in width calculus noted resulting in mild left-sided hydronephr osis and mild left renal edema. No additional calculi seen. Nonobstructing 2 mm calculus lower pole r ight kidney. No hydronephrosis. BOWEL: Appendix has a normal appearance. No evidence of bowel obstruction. No inflammatory process. Lymph nodes: No evidence for adenopathy greater than 1 cm. Abdominal aorta: Atheromatous changes seen. No evidence for aneurysm. Genital organs: No significant abnormality. Other: No significant abnormality. IMPRESSION: Within the mid left ureter there is a 5.8 mm in length by 3 mm in width calculus noted resulting in m ild left-sided hydronephrosis and mild left renal edema.
[2023-06-11 09:42] VITALS: BP 133/84; PULSE 98; RESP 20; TEMP 98.1
[2023-06-11 09:44] LABS: Basophils # (A) 0.1 k/uL (0-0.2); Basophils % (A) 1 %; Eosinophils # (A) 0.4 k/uL (0-0.7); Eosinophils % (A) 4 %; HCT 46.4 % (39.0-53.0); HGB 14.6 gm/dL (13.0-17.5); Lymphocytes # (A) 1.5 k/uL (1.0-4.8); Lymphocytes % (A) 13 %; MCH 29.1 pg (25.0-35.0); MCHC 31.5 g/dL (31.0-37.0); MCV 92.5 fL (80.0-100.0); Monocytes # (A) 0.8 k/uL (0-1.0); Monocytes % (A) 7 %; Neutrophils # (A) 8.2 k/uL (1.3-7.7); Neutrophils % (A) 74 %; Platelet Count 391 k/uL (150-450); RBC 5.01 m/uL (4.30-5.90); RDW 13.9 % (11.5-15.5); WBC 11.1 k/uL (3.8-10.6)
[2023-06-11] MEDS ORDERED: SODIUM CHLORIDE 0.9% 1,000 ML IV ONE (09:54)
[2023-06-11] MEDS: HYDROcodone/APAP 10-325MG 1 EACH TAB PO ONE (10:17)
== END 2023-06-11 10:27 | disposition home or self-care (01) ==
LOC: EC 08:07
DX: N13.2 Hydronephrosis with renal and ureteral calculous obstruction (principal); F17.200 Nicotine dependence, unspecified, uncomplicated; Z88.5 Allergy status to narcotic agent; Z88.8 Allergy status to other drugs, medicaments and biological substances
CPT/HCPCS: 36415; 80053; 82150; 83690; 85025; 74176; 99284; 96372; J1885

== ENCOUNTER 2023-07-10 17:50 | Emergency (ER) | payer OTHER ==
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
[2023-07-10 19:08] LABS: Basophils # (A) 0.1 k/uL (0-0.2); Basophils % (A) 1 %; Eosinophils # (A) 0.2 k/uL (0-0.7); Eosinophils % (A) 3 %; HCT 42.7 % (39.0-53.0); HGB 13.9 gm/dL (13.0-17.5); Lymphocytes # (A) 2.1 k/uL (1.0-4.8); Lymphocytes % (A) 23 %; MCH 30.3 pg (25.0-35.0); MCHC 32.6 g/dL (31.0-37.0); MCV 92.9 fL (80.0-100.0); Mean Platelet Volume 9.1; Monocytes # (A) 0.6 k/uL (0-1.0); Monocytes % (A) 7 %; Neutrophils # (A) 5.9 k/uL (1.3-7.7); Neutrophils % (A) 65 %; Platelet Count 326 k/uL (150-450); RBC 4.59 m/uL (4.30-5.90); RDW 14.4 % (11.5-15.5); WBC 9.1 k/uL (3.8-10.6)
[2023-07-10 19:18] LABS: ALT 40 U/L (4-49); AST 35 U/L (17-59); African American GFR (CKD) >90 (>60 ml/min/1.73 sqM); Alkaline Phosphatase 89 U/L (38-126); Anion Gap 5 mmol/L; Blood Urea Nitrogen 17 mg/dL (9-20); Calcium 9.4 mg/dL (8.4-10.2); Carbon Dioxide 23 mmol/L (22-30); Chloride 111 mmol/L (98-107); Glucose 85 mg/dL (74-99); Non-African American GFR(CKD) >90 (>60 ml/min/1.73 sqM); Potassium 4.1 mmol/L (3.5-5.1); Sodium 139 mmol/L (137-145); Total Bilirubin 0.6 mg/dL (0.2-1.3); Total Protein 7.2 g/dL (6.3-8.2)
[2023-07-10] MEDS: MORPHINE SULFATE 4 MG/ML SYRINGE IVP STA (20:15)
[2023-07-10 20:22] LABS: Appearance,Urine Cloudy (Clear); Bacteria,Urine Rare /hpf; Bilirubin,Urine Negative (Negative); Blood,Urine Large (Negative); Calcium Oxalate Crystals,Urine Few /hpf; Color,Urine Yellow; Glucose,Urine (UA) Negative (Negative); Ketones,Urine Negative (Negative); Leukocyte Esterase,Urine Negative (Negative); Mucus,Urine Many /hpf; Nitrite,Urine Negative (Negative); PH, Urine 5.5 (5.0-8.0); Protein,Urine Trace (Negative); RBC,Urine 124 /hpf (0-5); Specific Gravity,Urine 1.028 (1.001-1.035); Squamous Epithelial Cell,Urine <1 /hpf (0-4); WBC,Urine 3 /hpf (0-5)
[2023-07-10] MEDS: HYDROcodone/APAP 5-325MG 1 EACH TAB PO STA (21:18)
[2023-07-10 21:57] VITALS: BP 130/86; PULSE 88; RESP 16; TEMP 98.1
--- NOTE | 2023-07-11 00:40 | CT ---
EXAMINATION TYPE: CT abdomen pelvis wo con DATE OF EXAM: 07/10/2023 COMPARISON: None INDICATION: left flank pain, hx of kidney stones DLP: 2194.9 mGycm, Automated exposure control for dose reduction was used. CONTRAST: 0 mL of Isovue 300. Study performed without Oral Contrast TECHNIQUE: Axial images were obtained from above the diaphragm to the pubic rami in the axial plane a t 5 mm thick sections. Reconstructed images are reviewed on the computer in the coronal plane. FINDINGS: Limited CT sections are obtained the lung bases. The lung bases are clear. CT ABDOMEN: Liver: Normal Spleen: Normal Pancreas: Normal Adrenal glands: The adrenal glands are normal. Gallbladder: Normal Kidneys: No masses are evident. No hydronephrosis is present. No hydroureter is evident. No cysts a re present. There is a 0.2 cm inferior pole right renal stone without obstruction. Aorta: Vascular calcification is within the aorta. Inferior vena cava: Normal. CT PELVIS: Within the mid left ureter there is a nonobstructing 0.5 cm calcification. Nonobstructing ureteral stone may be present. Differential diagnosis could include a phlebolith within the gonadal v ein. Loops of bowel within the abdomen and pelvis are normal. This study is without oral contrast limi ting bowel evaluation. Appendix: Normal as visualized. Urinary bladder: Normal. Genitourinary structures: Prostate contains calcification. Prostate is enlarged. Osseous structures: No suspicious lytic or sclerotic lesions. IMPRESSION: 1. There may be a nonobstructing 0.5 cm mid left ureteral stone. Correlate with the patient's sympto ms. 2. Nonobstructing inferior pole right renal calcification.
== END 2023-07-10 21:24 | disposition home or self-care (01) ==
LOC: EC 17:50
DX: N20.2 Calculus of kidney with calculus of ureter (principal); F17.200 Nicotine dependence, unspecified, uncomplicated; Z88.5 Allergy status to narcotic agent; Z91.048 Other nonmedicinal substance allergy status
CPT/HCPCS: 36415; 80053; 85025; 81001; 74176; 99284; 96374; J2270